=== PATIENT | male | born 1970 | race Hispanic/Latino ===

== ENCOUNTER 2021-06-16 10:37 | Emergency (ER) | payer BC ==
[~2021-06-16] VITALS: Ht 180.3 cm; Wt 99.8 kg
[2021-06-16] MEDS ORDERED: ONDANSETRON HCL INJ 2MG/ML 2ML 2 MG/ML VIAL IV STA (10:49)
[2021-06-16] MEDS ORDERED: SODIUM CHLORIDE 0.9% 1000ML 1,000 ML IV STA (10:49)
[2021-06-16] MEDS ORDERED: MECLIZINE HCL 12.5 MG TAB PO ONE (11:00)
[2021-06-16 11:23] LABS: BASOPHILS % 0.3 % (0.0-1.0); EOSINOPHILS % 0.2 % (0.0-6.0); HEMATOCRIT 44.1 % (38.2-49.6); HEMOGLOBIN 15.3 g/dL (14.0-18.0); LYMPHOCYTES # (AUTO) 2.8 (1.0-3.2); LYMPHOCYTES % 26.2 % (18.0-39.1); MEAN CORPUSCULAR HEMOGLOBIN 30.4 pg (28-32); MEAN CORPUSCULAR HGB CONC 34.7 g/dL (31-35); MEAN CORPUSCULAR VOLUME 87.7 fL (81-99); MONOCYTES # (AUTO) 0.6 (0.2-0.8); MONOCYTES % 5.5 % (4.4-11.3); NEUTROPHILS # (AUTO) 7.1 (2.1-6.9); NEUTROPHILS % 67.4 % (38.7-80.0); PLATELET COUNT 277 x10e3/uL (140-360); RED BLOOD COUNT 5.03 x10e6/uL (4.3-5.7); RED CELL DISTRIBUTION WIDTH 13.2 % (11.7-14.4)
[2021-06-16 11:41] LABS: ALBUMIN 3.2 g/dL (3.5-5.0); ALBUMIN/GLOBULIN RATIO 0.8 (0.8-2.0); ANION GAP 16.7 mmol/L (8-16); CALCIUM 8.8 mg/dL (8.4-10.2); CREATININE, SERUM 1.45 mg/dL (0.72-1.25); MAGNESIUM 2.2 MG/DL (1.3-2.1); POTASSIUM 3.7 mmol/L (3.5-5.1)
[2021-06-16 11:48] LABS: CREATINE KINASE MB 3.4 ng/mL (0-5.0)
[2021-06-16 12:41] LABS: CLARITY,URINE CLEAR (CLEAR); COLOR,URINE YELLOW (YELLOW); KETONES,URINE 1+ (NEGATIVE); LEUKOCYTE ESTERASE ,URINE NEGATIVE (NEGATIVE); NITRITE,URINE NEGATIVE (NEGATIVE); PROTEIN,URINE DIPSTICK >=300 (NEGATIVE); URINE UROBILINOGEN 0.2 mg/dL (0.2 - 1)
[2021-06-16 12:52] LABS: BACTERIA,URINE FEW /HPF; EPITHELIAL CELLS,URINE FEW /LPF; WBC,URINE (MAN) 0-5 /HPF (0-5)
[2021-06-16 14:10] VITALS: BP 178/78
== END 2021-06-16 14:14 | disposition home or self-care (01) ==
LOC: ER 10:49
DX: R42 Dizziness and giddiness (principal); E11.65 Type 2 diabetes mellitus with hyperglycemia; I10 Essential (primary) hypertension; E78.5 Hyperlipidemia, unspecified; Z20.822 Contact with and (suspected) exposure to COVID-19
CPT/HCPCS: 36415; 70450; 71045; 80053; 81001; 82550; 82553; 83735; 84484; 85025; 87086; 93005; 99284; C9113; J2405; J7030; J8597; U0002

== ENCOUNTER → 2021-07-28 | Day surgery (SDC) | payer BC ==
[2021-07-25 15:55] LABS: BASOPHILS % 0.5 % (0.0-1.0); EOSINOPHILS # (AUTO) 0.1 (0.0-0.4); EOSINOPHILS % 1.9 % (0.0-6.0); HEMATOCRIT 41.4 % (38.2-49.6); HEMOGLOBIN 13.8 g/dL (14.0-18.0); LYMPHOCYTES # (AUTO) 2.3 (1.0-3.2); LYMPHOCYTES % 30.4 % (18.0-39.1); MEAN CORPUSCULAR HEMOGLOBIN 29.8 pg (28-32); MEAN CORPUSCULAR HGB CONC 33.3 g/dL (31-35); MEAN CORPUSCULAR VOLUME 89.4 fL (81-99); MONOCYTES # (AUTO) 0.5 (0.2-0.8); NEUTROPHILS # (AUTO) 4.4 (2.1-6.9); NEUTROPHILS % 59.4 % (38.7-80.0); PLATELET COUNT 236 x10e3/uL (140-360); RED BLOOD COUNT 4.63 x10e6/uL (4.3-5.7); RED CELL DISTRIBUTION WIDTH 12.5 % (11.7-14.4)
[2021-07-25 16:14] LABS: INR 0.94; PROTHROMBIN TIME 13.3 seconds (11.9-14.5)
[2021-07-25 16:23] LABS: ALANINE AMINOTRANSFERASE 17 IU/L (0-55); ALBUMIN 3.5 g/dL (3.5-5.0); ALKALINE PHOSPHATASE 37 IU/L (40-150); ANION GAP 12.7 mmol/L (8-16); BLOOD UREA NITROGEN 27 mg/dL (7-26); BUN/CREATININE RATIO 14 (6-25); CALCIUM 8.6 mg/dL (8.4-10.2); CARBON DIOXIDE 23 mmol/L (22-29); CHLORIDE 103 mmol/L (98-107); CHOL/HDL RATIO 8.5 (3.9-4.7); CHOLESTEROL 314 MD/DL (0-199); CREATININE, SERUM 1.99 mg/dL (0.72-1.25); EST GLOMERULAR FILTRATION RATE 36 ML/MIN (60-); GLUCOSE 339 mg/dL (74-118); HDL CHOLESTEROL 37 MG/DL (40-60); POTASSIUM 4.7 mmol/L (3.5-5.1); SODIUM 134 mmol/L (136-145); TRIGLYCERIDES 612 MG/DL (0-149)
[~2021-07-28] VITALS: Ht 180.3 cm; Wt 98.9 kg
[2021-07-28] VITALS (8 sets, daily range): BP systolic 107–162; BP diastolic 69–98
[~2021-07-28] MED LIST: ASPIRIN 325 MG TAB ONE; AZOR 10-40 MG1 EACH PO; FENTANYL CITRATE/PF 100MCG/2 ML INJ ONE; HEPARIN SOD/SOD CHLORIDE 2,000 ML ONE; IOPAMIDOL 370 MG/ML 200 ML INFUS..BTL INJ ONE; JARDIANCE10 MG; LIDOCAINE HCL 2% LOCAL 20 ML VIAL ONE; METFORMIN HCL850 MG PO; MIDAZOLAM HCL 2 MG/2 ML VIAL ONE; OZEMPIC1 MG/0.75 SC; SODIUM CHLORIDE 0.9% 1000ML 1,000 ML ONE; TICAGRELOR 90 MG TABLET ONE; TRICOR145 MG PO
== END | disposition home or self-care (01) ==
LOC: CATH LAB 09:40
PROVIDERS: ATTEND Internal Medicine Cardiovascular Disease
DX: I25.10 Atherosclerotic heart disease of native coronary artery without angina pectoris (principal); I25.82 Chronic total occlusion of coronary artery; R94.39 Abnormal result of other cardiovascular function study; E11.22 Type 2 diabetes mellitus with diabetic chronic kidney disease; I13.0 Hypertensive heart and chronic kidney disease with heart failure and stage 1 through stage 4 chronic kidney disease, or unspecified chronic kidney disease; N18.9 Chronic kidney disease, unspecified; I50.21 Acute systolic (congestive) heart failure; E78.00 Pure hypercholesterolemia, unspecified; J45.909 Unspecified asthma, uncomplicated; Z01.812 Encounter for preprocedural laboratory examination; Z20.822 Contact with and (suspected) exposure to COVID-19; Z79.84 Long term (current) use of oral hypoglycemic drugs; Z79.899 Other long term (current) drug therapy; Z68.30 Body mass index [BMI] 30.0-30.9, adult; Z86.73 Personal history of transient ischemic attack (TIA), and cerebral infarction without residual deficits; Z82.49 Family history of ischemic heart disease and other diseases of the circulatory system; Z83.3 Family history of diabetes mellitus
CPT/HCPCS: 36415; 76937; 80053; 80061; 85025; 85610; 92943; 93458; C1725; C1769 ×2; C1874; C1887; C1894; J2001; J2250; J3010; J7030; Q9967; U0002; 92928; 99152; 99153

== ENCOUNTER 2024-11-03 16:05 | Inpatient (IN) | payer BC, MEDICARE ==
[~2024-11-03] VITALS: Ht 180.3 cm; Wt 98.9 kg
[~2024-11-03 16:05] MED LIST changes: -ASPIRIN 325 MG TAB ONE; -FENTANYL CITRATE/PF 100MCG/2 ML INJ ONE; -HEPARIN SOD/SOD CHLORIDE 2,000 ML ONE; -IOPAMIDOL 370 MG/ML 200 ML INFUS..BTL INJ ONE; -LIDOCAINE HCL 2% LOCAL 20 ML VIAL ONE; -MIDAZOLAM HCL 2 MG/2 ML VIAL ONE; -SODIUM CHLORIDE 0.9% 1000ML 1,000 ML ONE; -TICAGRELOR 90 MG TABLET ONE
[2024-11-03 17:39] LABS: BASOPHILS % 0.4 % (0.0-1.0); EOSINOPHILS # (AUTO) 0.3 (0.0-0.4); EOSINOPHILS % 2.9 % (0.0-6.0); HEMATOCRIT 27.7 % (38.2-49.6); HEMOGLOBIN 8.9 g/dL (14.0-18.0); LYMPHOCYTES # (AUTO) 1.1 (1.0-3.2); LYMPHOCYTES % 11.2 % (18.0-39.1); MEAN CORPUSCULAR HEMOGLOBIN 30.8 pg (28-32); MEAN CORPUSCULAR HGB CONC 32.1 g/dL (31-35); MEAN CORPUSCULAR VOLUME 95.8 fL (81-99); MONOCYTES # (AUTO) 0.8 (0.2-0.8); MONOCYTES % 8.3 % (4.4-11.3); NEUTROPHILS # (AUTO) 7.1 (2.1-6.9); NEUTROPHILS % 75.1 % (38.7-80.0); PLATELET COUNT 228 x10e3/uL (140-360); RED BLOOD COUNT 2.89 x10e6/uL (4.3-5.7); RED CELL DISTRIBUTION WIDTH 15.7 % (11.7-14.4); WHITE BLOOD COUNT 9.39 x10e3/uL (4.8-10.8)
[2024-11-03 17:53] LABS: INFLUENZA A AG NEGATIVE (NEGATIVE); INFLUENZA B AG NEGATIVE (NEGATIVE)
[2024-11-03 17:54] LABS: CORONAVIRUS COVID-19 AG NEGATIVE (NEGATIVE)
[2024-11-03 17:58] LABS: INR 1.13; PROTHROMBIN TIME 15.2 seconds (11.9-14.5)
[2024-11-03 17:59] LABS: PARTIAL THROMBOPLASTIN TIME 40.7 seconds (23.8-35.5)
[2024-11-03 18:08] LABS: ALBUMIN 2.5 g/dL (3.5-5.0); ALBUMIN/GLOBULIN RATIO 0.7 (0.8-2.0); ANION GAP 23.2 mmol/L (8-16); BILIRUBIN,TOTAL 0.3 mg/dL (0.2-1.2); CREATININE, SERUM 17.39 mg/dL (0.72-1.25); TOTAL PROTEIN 6.3 g/dL (6.5-8.1)
[2024-11-03 18:11] LABS: POTASSIUM 5.2 mmol/L (3.5-5.1)
[2024-11-03 18:15] LABS: CALCIUM 6.3 mg/dL (8.4-10.2)
[2024-11-03 18:16] LABS: TROPONIN I 0.075 ng/mL (0-0.300)
[2024-11-03 18:35] LABS: ABG PCO2 25 mmHg (35-45); ABG PH 7.06 (7.35-7.45); ABG PO2 66 mmHg (80-105)
[2024-11-03 18:36] LABS: ABG HCO3 7 mmol/L (22-26); ABG TCO2 8
[2024-11-03] MEDS ORDERED: SODIUM BICARBONATE 8.4% SYRING 150 ML ONE (19:11)
[2024-11-03] MEDS ORDERED: Morphine 2mg Syringe 2 MG/ML SYR IV PRN (19:15)
[2024-11-03] MEDS ORDERED: ONDANSETRON HCL INJ 2MG/ML 2ML 2 MG/ML VIAL IV PRN (19:15)
[2024-11-03] MEDS ORDERED: SODIUM CHLORIDE FLUSH 10 ML SYR INJ PRN (19:15)
[2024-11-03] MEDS: SODIUM BICARBONATE 8.4% SYRING 150 ML in DEXTROSE 5%/0.45% SOD CHL 1,000 ML IV ONE (19:16)
[2024-11-03 19:57] LABS: CLARITY,URINE CLOUDY (CLEAR); COLOR,URINE YELLOW (YELLOW); GLUCOSE, URINE 1+ (NEGATIVE); LEUKOCYTE ESTERASE ,URINE NEGATIVE (NEGATIVE); NITRITE,URINE NEGATIVE (NEGATIVE); PH,URINE 5.5 (5 - 7); PROTEIN,URINE DIPSTICK >=300 (NEGATIVE)
[2024-11-03 19:58] LABS: BILIRUBIN,URINE NEGATIVE (NEGATIVE); KETONES,URINE NEGATIVE (NEGATIVE); URINE UROBILINOGEN 0.2 mg/dL (0.2 - 1)
[2024-11-03 20:05] LABS: AMPHETAMINES SCREEN,URINE NEGATIVE (NEGATIVE); BENZODIAZEPINES SCREEN,URINE NEGATIVE (NEGATIVE); COCAINE SCREEN,URINE NEGATIVE (NEGATIVE); OPIATES SCREEN,URINE NEGATIVE (NEGATIVE); PHENCYCLIDINE SCREEN,URINE NEGATIVE (NEGATIVE)
[2024-11-03 20:06] LABS: CANNABINOIDS SCREEN,URINE NEGATIVE (NEGATIVE); METHADONE SCREEN, URINE NEGATIVE (NEGATIVE)
[2024-11-03 20:10] LABS: BACTERIA,URINE MANY /HPF; EPITHELIAL CELLS,URINE FEW /LPF; RENAL EPITHELIAL CELLS,URINE FEW; TRANSITIONAL EPI CELLS,URINE FEW; WBC,URINE (MAN) 21-50 /HPF (0-5)
[2024-11-04] VITALS (25 sets, daily range): BP systolic 142–216; BP diastolic 66–93; PULSE 52–83; RESP 11–23; TEMP 98.3–98.7; O2SAT 94–100
[2024-11-04] MEDS ORDERED: POLYETHYLENE GLYCOL 3350 17 GM PACK PO PRN (02:15)
[2024-11-04] MEDS ORDERED: DIPHENHYDRAMINE HCL 25 MG CAP PO PRN (02:15)
[2024-11-04] MEDS ORDERED: BENZONATATE 100 MG CAP PO PRN (02:15)
[2024-11-04] MEDS ORDERED: DEXTROSE 50% SYRINGE 50 ML IV PRN ×2 (02:15→04:00)
[2024-11-04] MEDS ORDERED: SIMETHICONE 80 MG CHEW PO PRN (02:15)
[2024-11-04] MEDS ORDERED: ACETAMINOPHEN 325 MG TAB PO PRN (02:15)
[2024-11-04] MEDS ORDERED: MELATONIN 5 MG TABLET PO PRN (02:15)
[2024-11-04] MEDS ORDERED: ALBUTEROL/IPRATROPIUM 3 ML NEB NEB PRN (02:15)
[2024-11-04] MEDS ORDERED: DOCUSATE SODIUM 100 MG CAP PO PRN (02:15)
[2024-11-04] MEDS: CALCIUM GLUC 1 G/50 ML NACL 50 ML IV ONE (04:24)
[2024-11-04] MEDS ORDERED: DEXTROSE 5% 1,000 ML IV ONE (04:40)
[2024-11-04 04:52] LABS: BASOPHILS % 0.4 % (0.0-1.0); EOSINOPHILS # (AUTO) 0.2 (0.0-0.4); EOSINOPHILS % 2.5 % (0.0-6.0); HEMATOCRIT 26.7 % (38.2-49.6); HEMOGLOBIN 8.7 g/dL (14.0-18.0); LYMPHOCYTES # (AUTO) 1.6 (1.0-3.2); LYMPHOCYTES % 17.4 % (18.0-39.1); MEAN CORPUSCULAR HEMOGLOBIN 30.9 pg (28-32); MEAN CORPUSCULAR HGB CONC 32.6 g/dL (31-35); MEAN CORPUSCULAR VOLUME 94.7 fL (81-99); MONOCYTES # (AUTO) 0.9 (0.2-0.8); MONOCYTES % 9.5 % (4.4-11.3); NEUTROPHILS # (AUTO) 6.3 (2.1-6.9); NEUTROPHILS % 68.1 % (38.7-80.0); PLATELET COUNT 220 x10e3/uL (140-360); RED BLOOD COUNT 2.82 x10e6/uL (4.3-5.7); RED CELL DISTRIBUTION WIDTH 15.4 % (11.7-14.4); WHITE BLOOD COUNT 9.25 x10e3/uL (4.8-10.8)
[2024-11-04] MEDS: SODIUM BICARBONATE 8.4% SYRING 150 ML in DEXTROSE 5% 1,000 ML IV SCH ×2 (04:53→18:00)
[2024-11-04 05:04] LABS: CHOL/HDL RATIO 2.1 (3.9-4.7); MAGNESIUM 2.5 MG/DL (1.3-2.1)
[2024-11-04 05:05] LABS: ALBUMIN 2.5 g/dL (3.5-5.0); ALBUMIN/GLOBULIN RATIO 0.7 (0.8-2.0); ANION GAP 23.7 mmol/L (8-16); BILIRUBIN,TOTAL 0.3 mg/dL (0.2-1.2); CREATININE, SERUM 17.47 mg/dL (0.72-1.25); POTASSIUM 4.7 mmol/L (3.5-5.1); TOTAL PROTEIN 5.9 g/dL (6.5-8.1); TROPONIN I 0.071 ng/mL (0-0.300)
[2024-11-04 05:06] LABS: % IRON SATURATION 33 % (15-50); IRON 62 ug/dL (65-175); TOTAL IRON BINDING CAPACITY 190 ug/dL (261-478); TRANSFERRIN 136 mg/dL (174-364)
[2024-11-04 05:14] LABS: CALCIUM 5.8 mg/dL (8.4-10.2)
[2024-11-04 05:24] LABS: THYROID STIMULATING HORMONE 2.191 uIU/mL (0.350-4.940)
[2024-11-04] MEDS: PANTOPRAZOLE SOD 40 MG TABEC PO SCH (07:29)
[2024-11-04] MEDS: INSULIN REGULAR, HUMAN 100 UNIT/1 ML SQ SCH (07:30)
[2024-11-04] MEDS: HEPARIN SOD (PORCINE) 5,000 UNIT/ML VIAL SC SCH (09:00)
[2024-11-04] MEDS: LIDOCAINE 4% PATCH TP PRN (11:10)
[2024-11-04] MEDS: HYDROCODONE/APAP 5MG-325MG TAB PO PRN (11:10)
[2024-11-04] MEDS ORDERED: SODIUM CHLORIDE 0.9% 1000ML 2,000 ML IV PRN (13:00)
[2024-11-04] MEDS ORDERED: MANNITOL 25% 12.5GM/50 ML VIAL IV PRN (13:00)
[2024-11-04] MEDS ORDERED: HEPARIN SOD (PORCINE) 1000 UNIT/ML SDV IV PRN (13:00)
[2024-11-04 13:36] LABS: TROPONIN I 0.062 ng/mL (0-0.300)
[2024-11-04] MEDS: NIFEDIPINE CR 30 MG TAB PO SCH (13:45)
[2024-11-04] MEDS ORDERED: ENTRESTO 49 MG1 EACH (16:04)
[2024-11-04] MEDS ORDERED: FARXIGA10 MG (16:04)
[2024-11-04] MEDS ORDERED: BRILINTA90 MG (16:04)
[2024-11-04] MEDS ORDERED: METOPROLOL SUCC50 MG PO (16:04)
[2024-11-04] MEDS ORDERED: ASPIRIN81 MG PO (16:04)
[2024-11-04] MEDS ORDERED: HYDRALAZINE HC100 MG PO (16:04)
[2024-11-04] MEDS ORDERED: LEXAPRO10 MG PO (16:04)
[2024-11-04] MEDS: HYDRALAZINE HCL 20 MG/ML VIAL IV PRN (16:16)
[2024-11-04] MEDS ORDERED: SODIUM BICARBONATE 8.4% SYRING 150 ML in DEXTROSE 5% 1,000 ML IV SCH (16:30)
[2024-11-04] MEDS: TICAGRELOR 90 MG TABLET PO SCH (17:13)
[2024-11-04 19:08] LABS: ANION GAP 19.4 mmol/L (8-16); CREATININE, SERUM 11.97 mg/dL (0.72-1.25)
[2024-11-04 19:09] LABS: POTASSIUM 3.4 mmol/L (3.5-5.1)
[2024-11-04 19:10] LABS: CALCIUM 7.3 mg/dL (8.4-10.2)
[2024-11-04 20:24] LABS: CREATININE,URINE RANDOM 46.05 mg/dL (63-166)
[2024-11-04] MEDS ORDERED: CALCIUM CARBONATE 500 MG CHEWABLE TABS PO PRN (20:30)
[2024-11-04 21:26] LABS: TOTAL PROTEIN, URINE 262.7 mg/dL (1-14)
[2024-11-04] MEDS: LACTATED RINGER'S 1,000 ML INJ SCH (22:54)
[2024-11-05] VITALS (26 sets, daily range): BP systolic 137–198; BP diastolic 72–114; PULSE 69–87; RESP 9–27; TEMP 97.5–98.5; O2SAT 85–100
[2024-11-05 07:15] LABS: ANION GAP 21.5 mmol/L (8-16); CREATININE, SERUM 13.08 mg/dL (0.72-1.25); POTASSIUM 3.5 mmol/L (3.5-5.1)
[2024-11-05 07:18] LABS: CALCIUM 6.4 mg/dL (8.4-10.2)
[2024-11-05] MEDS: CALCIUM CARBONATE 500 MG CHEWABLE TABS PO SCH (07:58)
[2024-11-05] MEDS: ONDANSETRON HCL INJ 2MG/ML 2ML 2 MG/ML VIAL IV PRN (09:38)
[2024-11-05] MEDS ORDERED: HEPARIN SOD (PORCINE) 1000 UNIT/ML SDV IV PRN (15:30)
[2024-11-05] MEDS: NIFEDIPINE CR 30 MG TAB PO ONE ×2 (17:36→17:39)
[2024-11-06] VITALS (22 sets, daily range): BP systolic 127–207; BP diastolic 68–120; PULSE 76–89; RESP 6–29; TEMP 98–98.4; O2SAT 93–100
[2024-11-06 07:17] LABS: ANION GAP 16.1 mmol/L (8-16); CALCIUM 7.1 mg/dL (8.4-10.2); CREATININE, SERUM 8.89 mg/dL (0.72-1.25)
[2024-11-06 07:21] LABS: POTASSIUM 3.1 mmol/L (3.5-5.1)
[2024-11-06] MEDS: NIFEDIPINE CR 30 MG TAB PO SCH (08:41)
[2024-11-06] MEDS: CARVEDILOL 3.125 MG TAB PO ONE (15:11)
[2024-11-06] MEDS ORDERED: CARVEDILOL 12.5 MG TAB PO SCH (17:00)
[2024-11-06] MEDS: METOCLOPRAMIDE HCL 10 MG/2ML VIAL IV SCH (17:13)
[2024-11-06] MEDS: CARVEDILOL 12.5 MG TAB PO SCH (17:14)
[2024-11-07] VITALS (9 sets, daily range): BP systolic 115–172; BP diastolic 59–80; PULSE 56–78; RESP 10–20; TEMP 97.4–98.1; O2SAT 94–100
[2024-11-07] MEDS: TRAMADOL HCL 50 MG TAB PO PRN (05:33)
[2024-11-07 06:37] LABS: BASOPHILS # (AUTO) 0.1 (0.0-0.1); BASOPHILS % 0.6 % (0.0-1.0); EOSINOPHILS # (AUTO) 0.3 (0.0-0.4); EOSINOPHILS % 3.6 % (0.0-6.0); HEMATOCRIT 24.5 % (38.2-49.6); HEMOGLOBIN 8.1 g/dL (14.0-18.0); LYMPHOCYTES # (AUTO) 1.6 (1.0-3.2); LYMPHOCYTES % 18.7 % (18.0-39.1); MEAN CORPUSCULAR HEMOGLOBIN 31.2 pg (28-32); MEAN CORPUSCULAR HGB CONC 33.1 g/dL (31-35); MEAN CORPUSCULAR VOLUME 94.2 fL (81-99); MONOCYTES # (AUTO) 0.9 (0.2-0.8); MONOCYTES % 9.9 % (4.4-11.3); NEUTROPHILS # (AUTO) 5.8 (2.1-6.9); NEUTROPHILS % 66.3 % (38.7-80.0); PLATELET COUNT 217 x10e3/uL (140-360); RED CELL DISTRIBUTION WIDTH 14.6 % (11.7-14.4); WHITE BLOOD COUNT 8.71 x10e3/uL (4.8-10.8)
[2024-11-07 06:49] LABS: ANION GAP 13.3 mmol/L (8-16); CALCIUM 7.4 mg/dL (8.4-10.2); CREATININE, SERUM 6.1 mg/dL (0.72-1.25)
[2024-11-07 06:51] LABS: POTASSIUM 3.3 mmol/L (3.5-5.1)
[2024-11-07 10:27] LABS: HEPATITIS B SURFACE AB QUANT <3.5; HEPATITIS B SURFACE AG (P) Negative
[2024-11-07 10:28] LABS: HEPATITIS B CORE IGM (P) Negative
[2024-11-08] VITALS (10 sets, daily range): BP systolic 115–162; BP diastolic 69–84; PULSE 57–82; RESP 18–20; TEMP 97.5–98.4; O2SAT 94–99
[2024-11-08 06:26] LABS: ANION GAP 14.6 mmol/L (8-16); CALCIUM 7.1 mg/dL (8.4-10.2); CREATININE, SERUM 7.03 mg/dL (0.72-1.25); POTASSIUM 3.6 mmol/L (3.5-5.1)
[2024-11-08] MEDS: SODIUM CHLORIDE 0.9% 250ML 250 ML ONE (10:43)
[2024-11-08] MEDS: SODIUM CHLORIDE 0.9% 1000ML 2,000 ML ONE (10:43)
[2024-11-08] MEDS: HEPARIN SOD (PORCINE) 1000 UNIT/ML SDV ONE (13:20)
[2024-11-08] MEDS ORDERED: HEPARIN SOD (PORCINE) 1000 UNIT/ML SDV ONE (14:21)
[2024-11-08] MEDS ORDERED: FENTANYL CITRATE/PF 100MCG/2 ML INJ ONE (14:21)
[2024-11-09 01:53] VITALS: BP 140/73; PULSE 70; RESP 18; TEMP 98.2; O2SAT 95
[2024-11-09 11:01] VITALS: BP 133/65; PULSE 63; RESP 18; TEMP 98.2; O2SAT 98
[2024-11-09 11:03] VITALS: BP 133/65; PULSE 63; RESP 18; TEMP 98.2; O2SAT 98
[2024-11-15 05:50] LABS: ABG HCO3 7 mmol/L (22-26); ABG PCO2 25 mmHg (35-45); ABG PH 7.06 (7.35-7.45); ABG PO2 66 mmHg (80-105); ABG TCO2 8
== END 2024-11-09 15:52 | disposition home or self-care (01) | DRG 673 ==
LOC: ER 16:47 → ERHOLD 19:08 → ICU 11-04 10:06 → MED/SURG 11-07 06:39
PROVIDERS: ADMIT Internal Medicine; ATTEND Internal Medicine
PROC: 4A133R1 Monitoring of Arterial Saturation, Peripheral, Percutaneous Approach (ICD-10-PCS; 2024-11-03)
PROC: 02HV33Z Insertion of Infusion Device into Superior Vena Cava, Percutaneous Approach (ICD-10-PCS; 2024-11-04)
PROC: 5A1D70Z Performance of Urinary Filtration, Intermittent, Less than 6 Hours Per Day (ICD-10-PCS; 2024-11-04)
PROC: 0JH63XZ Insertion of Tunneled Vascular Access Device into Chest Subcutaneous Tissue and Fascia, Percutaneous Approach (ICD-10-PCS; principal; 2024-11-08)
PROC: 02HV33Z Insertion of Infusion Device into Superior Vena Cava, Percutaneous Approach (ICD-10-PCS; 2024-11-08)
DX: N17.9 Acute kidney failure, unspecified (principal); J81.0 Acute pulmonary edema; E87.4 Mixed disorder of acid-base balance; N39.0 Urinary tract infection, site not specified; I12.0 Hypertensive chronic kidney disease with stage 5 chronic kidney disease or end stage renal disease; E11.22 Type 2 diabetes mellitus with diabetic chronic kidney disease; N18.6 End stage renal disease; E88.09 Other disorders of plasma-protein metabolism, not elsewhere classified; E83.51 Hypocalcemia; Z99.2 Dependence on renal dialysis; E11.42 Type 2 diabetes mellitus with diabetic polyneuropathy; E11.43 Type 2 diabetes mellitus with diabetic autonomic (poly)neuropathy; K31.84 Gastroparesis; I25.10 Atherosclerotic heart disease of native coronary artery without angina pectoris; E78.5 Hyperlipidemia, unspecified; E87.5 Hyperkalemia; E87.70 Fluid overload, unspecified; R31.29 Other microscopic hematuria; Z11.52 Encounter for screening for COVID-19; Z79.85 Long-term (current) use of injectable non-insulin antidiabetic drugs; Z79.84 Long term (current) use of oral hypoglycemic drugs; Z95.5 Presence of coronary angioplasty implant and graft; Z86.73 Personal history of transient ischemic attack (TIA), and cerebral infarction without residual deficits; Z88.8 Allergy status to other drugs, medicaments and biological substances; E66.9 Obesity, unspecified; Z68.30 Body mass index [BMI] 30.0-30.9, adult
CPT/HCPCS: 36415; 36558; 36600; 70450; 71045; 72125; 74176; 74470; 76770; 76937; 77001; 80048; 80053; 80061; 80307; 80320; 81001; 82550; 82570; 82805; 82948; 83036; 83518; 83540; 83605; 83735; 83880; 84100; 84156; 84443; 84466; 84484; 85025; 85610; 85730; 86705; 86706; 87070; 87086; 87340; 93005; 93306; 94799; 99284; C1769; J0360; J0690; J0696; J1644; J2150; J2405; J2470; J2765; J7030; J7050; J7070

== ENCOUNTER 2025-04-05 23:07 | Inpatient (IN) | payer MEDICARE ==
[~2025-04-05] VITALS: Ht 180.3 cm; Wt 90.7 kg
[~2025-04-05 23:07] MED LIST changes: +ASPIRIN81 MG PO; +BRILINTA90 MG; +ENTRESTO 49 MG1 EACH; +FARXIGA10 MG; +HYDRALAZINE HC100 MG PO; +LEXAPRO10 MG PO; +METOPROLOL SUCC50 MG PO
[2025-04-05 23:14] VITALS: PULSE 83; RESP 19; TEMP 98.6
[2025-04-05] MEDS: ONDANSETRON HCL INJ 2MG/ML 2ML 2 MG/ML VIAL IV STA (23:25)
[2025-04-05] MEDS: Morphine 4mg INJECTION 4 MG/ML INJ IV STA (23:25)
[2025-04-05 23:58] LABS: EST GLOMERULAR FILTRATION RATE 8.0 ML/MIN (>=60)
[2025-04-06] VITALS (7 sets, daily range): BP systolic 140–193; BP diastolic 73–85; PULSE 74–89; RESP 17–20; TEMP 97.6–99.2; O2SAT 96–100
[2025-04-06] MEDS ORDERED: IOPAMIDOL 370 MG/ML 100 ML INFUS..BTL INJ ONE (00:11)
[2025-04-06] MEDS ORDERED: SODIUM CHLORIDE FLUSH 10 ML SYR INJ PRN (01:15)
[2025-04-06] MEDS ORDERED: Morphine 4mg INJECTION 4 MG/ML INJ IV PRN (01:15)
[2025-04-06] MEDS ORDERED: HYDRALAZINE HCL50 MG PO (01:51)
[2025-04-06] MEDS: HYDROMORPHONE 1MG/1ML INJ IV PRN (02:19)
[2025-04-06] MEDS: DEXTROSE 5%/0.9% SOD CHL 1,000 ML IV SCH ×2 (02:57→17:41)
[2025-04-06] MEDS: ONDANSETRON HCL INJ 2MG/ML 2ML 2 MG/ML VIAL IV PRN ×2 (04:58→17:53)
[2025-04-06] MEDS: SODIUM CHLORIDE 0.9% 1000ML 1,000 ML IV SCH (05:00)
[2025-04-06] MEDS: HYDRALAZINE HCL 25 MG TAB PO SCH (09:00)
[2025-04-06 09:48] LABS: LYMPHOCYTES % 21.6 % (18.0-39.1); NEUTROPHILS % 71.3 % (38.7-80.0); RED CELL DISTRIBUTION WIDTH 14.9 % (11.7-14.4)
[2025-04-06] MEDS: HYDRALAZINE HCL 20 MG/ML VIAL IV PRN (13:52)
[2025-04-06] MEDS ORDERED: DIPHENHYDRAMINE HCL 25 MG CAP PO PRN (17:00)
[2025-04-06] MEDS ORDERED: DOCUSATE SODIUM 100 MG CAP PO PRN (17:00)
[2025-04-06] MEDS ORDERED: ACETAMINOPHEN 325 MG TAB PO PRN (17:00)
[2025-04-06] MEDS ORDERED: BENZONATATE 100 MG CAP PO PRN (17:00)
[2025-04-06] MEDS ORDERED: MELATONIN 5 MG TABLET PO PRN (17:00)
[2025-04-06] MEDS ORDERED: POTASSIUM CHLORIDE 20 MEQ TAB CR PO PRN (17:00)
[2025-04-06] MEDS ORDERED: ALBUTEROL/IPRATROPIUM 3 ML NEB NEB PRN (17:00)
[2025-04-06] MEDS ORDERED: DEXTROSE 50% SYRINGE 50 ML IV PRN (17:00)
[2025-04-06] MEDS: NIFEDIPINE CR 30 MG TAB PO ONE (17:41)
[2025-04-07] VITALS (9 sets, daily range): BP systolic 136–148; BP diastolic 64–79; PULSE 81–87; RESP 16–19; TEMP 97.6–98.3; O2SAT 96–99
[2025-04-07] MEDS: METOCLOPRAMIDE HCL 10 MG/2ML VIAL IV SCH
[2025-04-07] MEDS: METOCLOPRAMIDE HCL 10 MG/2ML VIAL IV STA (00:27)
[2025-04-07 06:27] LABS: BASOPHILS % 0.2 % (0.0-1.0); EOSINOPHILS % 1.6 % (0.0-6.0); LYMPHOCYTES % 14.4 % (18.0-39.1); MONOCYTES % 9.2 % (4.4-11.3); NEUTROPHILS % 74.2 % (38.7-80.0); RED CELL DISTRIBUTION WIDTH 16.0 % (11.7-14.4)
[2025-04-07 06:53] LABS: PHOSPHORUS 6.3 MG/DL (2.3-4.7)
[2025-04-07 06:54] LABS: CHOL/HDL RATIO 4.8 (3.9-4.7); LDL CHOLESTEROL 64.0 MG/DL (60-130)
[2025-04-07 06:56] LABS: EST GLOMERULAR FILTRATION RATE 10.0 ML/MIN (>=60)
[2025-04-07] MEDS: ESCITALOPRAM OXALATE 10 MG TAB PO SCH (10:01)
[2025-04-07] MEDS: NIFEDIPINE CR 30 MG TAB PO SCH (10:03)
[2025-04-07] MEDS: PANTOPRAZOLE SOD 40 MG TABEC PO SCH (10:03)
[2025-04-07] MEDS: HEPARIN SOD (PORCINE) 5,000 UNIT/ML VIAL SC SCH (21:22)
[2025-04-08] VITALS (10 sets, daily range): BP systolic 149–174; BP diastolic 57–87; PULSE 77–91; RESP 16–20; TEMP 97–98.8; O2SAT 95–100
[2025-04-08 06:21] LABS: BASOPHILS % 0.8 % (0.0-1.0); EOSINOPHILS % 3.9 % (0.0-6.0); LYMPHOCYTES % 17.9 % (18.0-39.1); MONOCYTES % 9.9 % (4.4-11.3); NEUTROPHILS % 66.9 % (38.7-80.0); RED CELL DISTRIBUTION WIDTH 15.8 % (11.7-14.4)
[2025-04-08 06:55] LABS: EST GLOMERULAR FILTRATION RATE 6.0 ML/MIN (>=60)
[2025-04-08 08:39] LABS: EPITHELIAL CELLS,URINE MODERATE /LPF; LEUKOCYTE ESTERASE ,URINE NEGATIVE (NEGATIVE); PROTEIN,URINE DIPSTICK >=300 (NEGATIVE); URINE UROBILINOGEN 0.2 mg/dL (0.2 - 1)
[2025-04-08] MEDS ORDERED: NIFEDIPINE CR 30 MG TAB PO SCH (16:00)
[2025-04-09] VITALS (10 sets, daily range): BP systolic 111–175; BP diastolic 53–91; PULSE 72–87; RESP 17–20; TEMP 97.7–99; O2SAT 93–100
[2025-04-09 06:14] LABS: BASOPHILS % 0.3 % (0.0-1.0); EOSINOPHILS % 4.8 % (0.0-6.0); LYMPHOCYTES % 21.0 % (18.0-39.1); MONOCYTES % 11.2 % (4.4-11.3); NEUTROPHILS % 62.3 % (38.7-80.0); RED CELL DISTRIBUTION WIDTH 15.8 % (11.7-14.4)
[2025-04-09 06:44] LABS: PHOSPHORUS 8.0 MG/DL (2.3-4.7)
[2025-04-09 07:05] LABS: EST GLOMERULAR FILTRATION RATE 5.0 ML/MIN (>=60)
[2025-04-09] MEDS: FENOFIBRATE 160 MG PO SCH (08:53)
[2025-04-09] MEDS ORDERED: PIPERACILLIN IV SCH (12:00)
[2025-04-09] MEDS ORDERED: TAZOBACTAM IV SCH (12:00)
[2025-04-09] MEDS ORDERED: SODIUM CHLORIDE 0.9% IV SCH (12:00)
[2025-04-09] MEDS ORDERED: HEPARIN SOD (PORCINE) 1000 UNIT/ML SDV IV PRN (14:15)
[2025-04-09] MEDS ORDERED: ALBUMIN 25% 12.5GM 0.25 GM/ML BTL IV PRN (14:15)
[2025-04-09] MEDS ORDERED: SODIUM CHLORIDE 0.9% 1000ML 2,000 ML IV PRN (14:15)
[2025-04-10] VITALS (8 sets, daily range): BP systolic 150–176; BP diastolic 78–89; PULSE 75–83; RESP 18–21; TEMP 97.5–98.3; O2SAT 96–100
[2025-04-10 05:35] LABS: HEPATITIS B CORE AB TOTAL Negative; HEPATITIS B SURFACE AB QUANT <3.5; HEPATITIS B SURFACE AG (P) Negative
[2025-04-10 06:06] LABS: BASOPHILS % 0.7 % (0.0-1.0); EOSINOPHILS % 5.8 % (0.0-6.0); LYMPHOCYTES % 22.9 % (18.0-39.1); MONOCYTES % 9.6 % (4.4-11.3); NEUTROPHILS % 60.7 % (38.7-80.0); RED CELL DISTRIBUTION WIDTH 15.3 % (11.7-14.4)
[2025-04-10 06:41] LABS: EST GLOMERULAR FILTRATION RATE 8.0 ML/MIN (>=60)
[2025-04-10] MEDS ORDERED: PROPOFOL IV EMULSION 10 MG/ML 20 ML VIAL ONE (08:15)
[2025-04-10] MEDS ORDERED: FENTANYL CITRATE/PF 100MCG/2 ML INJ ONE (08:15)
[2025-04-10] MEDS ORDERED: MIDAZOLAM HCL 2 MG/2 ML VIAL ONE (08:15)
[2025-04-10] MEDS ORDERED: ACETAMINOPHEN 1000 MG/100 ML 100 ML IV ONE (08:16)
[2025-04-10] MEDS ORDERED: ROCURONIUM BROMIDE 1 ML IV ONE (08:16)
[2025-04-10] MEDS ORDERED: SUGAMMADEX SODIUM 200 MG/2 ML VIAL IV ONE (08:17)
[2025-04-10] MEDS: FENTANYL CITRATE/PF 100MCG/2 ML INJ ONE (10:14)
[2025-04-10] MEDS: DEXTROSE 5%/0.45% SOD CHL 1,000 ML IV SCH (12:00)
[2025-04-10] MEDS: ONDANSETRON HCL INJ 2MG/ML 2ML 2 MG/ML VIAL IV PRN (20:49)
[2025-04-11] VITALS (9 sets, daily range): BP systolic 112–170; BP diastolic 61–85; PULSE 72–101; RESP 16–20; TEMP 97.2–98; O2SAT 95–100
[2025-04-11 05:54] LABS: BASOPHILS % 0.3 % (0.0-1.0); EOSINOPHILS % 1.5 % (0.0-6.0); LYMPHOCYTES % 11.1 % (18.0-39.1); MONOCYTES % 10.5 % (4.4-11.3); NEUTROPHILS % 76.0 % (38.7-80.0); RED CELL DISTRIBUTION WIDTH 15.2 % (11.7-14.4)
[2025-04-11 06:42] LABS: EST GLOMERULAR FILTRATION RATE 6.0 ML/MIN (>=60)
[2025-04-11] MEDS ORDERED: HYDROCODONE/APAP 5MG-325MG TAB PO PRN (14:30)
[2025-04-11] MEDS: HYDROCODONE/APAP 5MG-325MG TAB PO PRN (14:43)
[2025-04-11] MEDS: CHOLESTYRAMINE 4 GM PACKET PO SCH (14:48)
[2025-04-11] MEDS: HYDRALAZINE HCL 20 MG/ML VIAL IV PRN (17:57)
[2025-04-11] MEDS: SIMETHICONE 80 MG CHEW PO PRN (22:01)
[2025-04-12] VITALS: BP 174/87; PULSE 96; RESP 20; TEMP 99; O2SAT 98
[2025-04-12 06:25] VITALS: BP 158/78; PULSE 91; RESP 18; TEMP 98.1; O2SAT 100
[2025-04-12 06:26] LABS: BASOPHILS % 0.7 % (0.0-1.0); EOSINOPHILS % 4.1 % (0.0-6.0); LYMPHOCYTES % 22.3 % (18.0-39.1); MONOCYTES % 12.1 % (4.4-11.3); NEUTROPHILS % 59.9 % (38.7-80.0); RED CELL DISTRIBUTION WIDTH 15.1 % (11.7-14.4)
[2025-04-12 06:56] LABS: EST GLOMERULAR FILTRATION RATE 8.0 ML/MIN (>=60)
[2025-04-12 08:00] VITALS: PULSE 92; RESP 18; O2SAT 98
[2025-04-12 08:19] VITALS: BP 138/71; PULSE 84; RESP 19; TEMP 98.8; O2SAT 98
[2025-04-12] MEDS: LIDOCAINE 4% PATCH TP PRN (09:09)
[2025-04-12 12:23] VITALS: BP 158/73; PULSE 75; RESP 20; TEMP 98.4; O2SAT 99
[2025-04-12 13:39] VITALS: PULSE 96; RESP 18; O2SAT 97
== END 2025-04-12 15:25 | disposition home or self-care (01) | DRG 417 ==
LOC: ER 23:13 → ERHOLD 04-06 01:06 → MED/SURG3 04-06 01:59
PROVIDERS: ADMIT Internal Medicine; ATTEND Internal Medicine
PROC: 5A1D70Z Performance of Urinary Filtration, Intermittent, Less than 6 Hours Per Day (ICD-10-PCS; 2025-04-06)
PROC: 0FT44ZZ Resection of Gallbladder, Percutaneous Endoscopic Approach (ICD-10-PCS; principal; 2025-04-10 08:25)
DX: K85.10 Biliary acute pancreatitis without necrosis or infection (principal); I13.2 Hypertensive heart and chronic kidney disease with heart failure and with stage 5 chronic kidney disease, or end stage renal disease; N18.6 End stage renal disease; D63.1 Anemia in chronic kidney disease; Z99.2 Dependence on renal dialysis; I50.9 Heart failure, unspecified; K80.20 Calculus of gallbladder without cholecystitis without obstruction; E11.22 Type 2 diabetes mellitus with diabetic chronic kidney disease; I25.10 Atherosclerotic heart disease of native coronary artery without angina pectoris; E78.5 Hyperlipidemia, unspecified; F41.9 Anxiety disorder, unspecified; F32.A Depression, unspecified; E66.9 Obesity, unspecified; Z68.27 Body mass index [BMI] 27.0-27.9, adult; Z79.82 Long term (current) use of aspirin; Z79.85 Long-term (current) use of injectable non-insulin antidiabetic drugs; Z86.73 Personal history of transient ischemic attack (TIA), and cerebral infarction without residual deficits; Z95.5 Presence of coronary angioplasty implant and graft; Z88.8 Allergy status to other drugs, medicaments and biological substances; Z83.3 Family history of diabetes mellitus; Z82.49 Family history of ischemic heart disease and other diseases of the circulatory system
CPT/HCPCS: 36415; 74177; 74181; 76705; 80048; 80053; 80061; 81001; 82550; 82948; 83690; 83735; 84100; 84484; 85025; 86704; 86706; 87340; 88304; 93005; 93306; 94799; 99252; 99284; J0360; J1171; J1644; J2250; J2270; J2405; J2470; J2543; J2765; J7030; J7042; Q9967